=== PATIENT | female | born 1990 | race Caucasian/White ===

== ENCOUNTER → 2021-01-15 15:15 | Outpatient (CLI) | payer OTHER, SELFPAY ==
--- NOTE | ~2021-01-15 | US_ITS ---
EXAMINATION: US OB transvaginal DATE: 01/15/2021 15:45 INDICATION: First trimester dating TECHNIQUE: Real-time pelvic transabdominal and transvaginal ultrasound was performed. COMPARISON: None. FINDINGS: The uterus measures 10.2 x 5.8 x 8.7 cm. There is an intrauterine gestational sac. There i s a 1.1 x 1.4 x 0.3 cm hypoechoic area adjacent to the gestational sac. A yolk sac is identified. Fet al heart motion is identified measuring 182 beats per minute (bpm) by M-mode Doppler. The crown rump length measures 2.3 cm , which correlates with an estimated gestational age of 9 weeks and 0 da y(s) (+/-) 6 day(s). The right ovary measures 4.8 x 2.8 x 4.3 cm and contains a 3.8 x 1.8 x 3.6 cm complex cyst. The left ovary measures 2.6 x 1.7 x 2.2 cm. There is normal vascular flow in the ovaries. There is no free flu id in the pelvis. IMPRESSION: 1. Live intrauterine with an estimated gestational age of 9 weeks and 0 day(s) (+/-) 6 day( s) and an estimated delivery date of 08/20/2021. 2. Small subchorionic hematoma. 3. Complex cyst of the right ovary which can be reevaluated at the time of subchronic hematoma follow -up. Reviewed, dictated and finalized at location A. IMPRESSION: 1. Live intrauterine with an estimated gestational age of 9 weeks and 0 day(s) (+/-) 6 day(s) and an estimated delivery date of 08/20/2021. 2. Small subchorionic hematoma. 3. Complex cyst of the right ovary which can be reevaluated at the time of subc hronic hematoma follow-up.
== END ==
PROVIDERS: Visit Provider Nurse Practitioner
DX: O20.8 Other hemorrhage in early pregnancy (principal); Z3A.09 9 weeks gestation of pregnancy; N83.201 Unspecified ovarian cyst, right side
CPT/HCPCS: 76817

== ENCOUNTER → 2021-02-16 15:17 | Outpatient (CLI) | payer OTHER, SELFPAY ==
--- NOTE | ~2021-02-16 | US_ITS ---
US OB limited 02/16/2021 15:48 Indication: Follow-up subchorionic hematoma Procedure: High-resolution Limited obstetrical ultrasound Comparison: 01/15/2021 Findings: There is a single living intrauterine with heart rate of 161 bpm. Amniotic fluid is subjectively normal. There is a small subchorionic hemorrhage measuring 2.3 x 1.4 x 1.1 cm. Right ovary is unremarkable measuring 2.7 x 1.7 x 1.9 cm. Left ovary not visualized. No free fluid in the pelvis. Impression: 1: Single living intrauterine with heart rate of 161 bpm. 2: Small subchorionic hemorrhage. Reviewed, dictated and finalized at location B. Impression: 1: Single living intrauterine with heart rate of 161 bpm. 2: Small subchorionic hemorrhage.
== END ==
PROVIDERS: Visit Provider Obstetrics & Gynecology Gynecology
DX: O36.8910 Maternal care for other specified fetal problems, first trimester, not applicable or unspecified (principal)
CPT/HCPCS: 76815

== ENCOUNTER → 2021-03-03 15:16 | Outpatient (CLI) | payer OTHER, SELFPAY ==
--- NOTE | ~2021-03-03 | US_ITS ---
US OB limited 03/03/2021 15:58 Indication: Follow-up subchorionic hematoma. Procedure: High-resolution Limited obstetrical ultrasound Comparison: Ultrasound dated 02/16/2021 Findings: There is a single living intrauterine with heart rate of 168 BPM. Amniotic fluid is subjectively normal. Posterior placenta. There is an intraplacental sonolucency measuring 1. 8 x 1.5 x 1.2 cm, most likely benign placental barrow. No definite subchorionic hemorrhage. Impression: 1: Single living intrauterine with heart rate of 168 BPM. 2: Intraplacental sonolucency, most likely benign placental barrow. No marginal placental abnormalities are identified. Reviewed, dictated and finalized at location A. Impression: 1: Single living intrauterine with heart rate of 168 BPM. 2: Intraplacental sonolucency, most likely benign placental barrow. No marginal p lacental abnormalities are identified.
== END ==
PROVIDERS: Visit Provider Obstetrics & Gynecology Gynecology
DX: O36.93X0 Maternal care for fetal problem, unspecified, third trimester, not applicable or unspecified (principal); Z3A.00 Weeks of gestation of pregnancy not specified
CPT/HCPCS: 76815

== ENCOUNTER 2021-07-10 16:00 | Outpatient (CLI) | payer OTHER, SELFPAY ==
[2021-07-10 16:30] VITALS: BP 126/75; PULSE 88
[2021-07-10 16:31] VITALS: BP 117/75; PULSE 89
[2021-07-10 16:54] LABS: Basophils Percent Auto 0.2 % (0.2-1.2); Eosinophils Absolute Auto 0.1 K/mm3 (0-0.3); Eosinophils Percent Auto 0.5 % (0-4.4); Hematocrit 35.9 % (37.0-47.0); Hemoglobin 12.3 g/dL (12.0-15.0); Immature Granulocyte Absolute 0.11 K/mm3 (0.00-0.031); Immature Granulocyte Percent A 0.9 % (0-0.5); Lymphocytes Absolute Auto 1.49 K/mm3 (0.9-3.2); Lymphocytes Percent Auto 12.6 % (18.3-44.2); Mean Corpuscular HGB Conc 34.3 g/dl (32-36); Mean Corpuscular Hemoglobin 30.1 pg (26-34); Mean Platelet Volume 11.4 fl (7.4-10.4); Monocytes Absolute Auto 0.8 K/mm3 (0.1-0.6); Monocytes Percent Auto 6.9 % (2.6-8.5); Neutrophils Absolute Auto 9.4 K/mm3 (1.3-6.7); Neutrophils Percent Auto 78.9 % (45.5-73.1); Platelet Count Result 187 k/mm3 (150-375); Red Blood Count 4.08 M/mm3 (4.2-5.4); Red Cell Distribution Width 13.3 % (11.5-14.5); White Blood Count 11.9 K/mm3 (4.5-10.0)
[2021-07-10 17:00] VITALS: BP 111/67; PULSE 82
[2021-07-10 17:00] LABS: Add Urine Microscopic? YES; Appearance Urine Cloudy (Clear); Bacteria Urine Trace /hpf; Bilirubin Urine Negative (Negative); Blood Urine Negative (Negative); Color Urine Yellow (Yellow); Glucose Urine UA Negative (Negative); Ketones Urine Negative (Negative); Leukocyte Esterase Ur 3+ LEU/UL (NEGATIVE); Mucus Urine Rare /lpf; Nitrate Urine Negative (Negative); Protein Urine Negative (Negative); Specific Grav Ur 1.021 (1.001-1.035); Squamous Epithelial Cell Urine Many /hpf (Few); Urobilinogen Urine Negative mg/dL (<2.0); WBC Urine >75 /hpf (0-3)
[2021-07-10 17:04] VITALS: BP 126/75; PULSE 88
[2021-07-10 17:17] LABS: Alanine Aminotransferase 14 U/L (4-35); Albumin Level 3.5 g/dL (3.5-5.1); Alkaline Phosphatase 96 U/L (38-126); Anion Gap 3 mmol/L (8-16); Aspartate Amino Transferase 20 U/L (14-36); Bilirubin,Total 0.2 mg/dL (0.2-1.3); Blood Urea Nitrogen 7 mg/dL (7-17); Calcium 9.2 mg/dL (8.4-10.2); Carbon Dioxide 24 mmol/L (22-30); Chloride 106 mmol/L (98-107); Estimated Glomerular Filt Rate > 60; Glucose 94 mg/dL (65-110); Sodium 133 mmol/L (137-145); Uric Acid 3.3 mg/dL (2.5-7.5)
[2021-07-10 17:25] LABS: Potassium 3.9 mmol/L (3.4-5.0)
[2021-07-10 17:54] LABS: Creatinine Urine 134.6 mg/dL
[2021-07-10 18:18] LABS: Total Protein Urine Random < 5 mg/dL
[2021-07-10 18:19] LABS: Ur Ttl Prot Creatinine Ratio < 0.04 mg/mg (0-0.20)
== END 2021-07-10 18:25 | disposition home or self-care (01) ==
LOC: ANHOBOP 16:16 → ANHOBPP 16:17
PROVIDERS: Visit Provider Obstetrics & Gynecology Gynecology
DX: O16.3 Unspecified maternal hypertension, third trimester (principal); Z3A.34 34 weeks gestation of pregnancy
CPT/HCPCS: 36415; 59025; 80053; 81001; 82570; 84156; 84550; 85025; 87086; 99199

== ENCOUNTER 2021-07-11 18:25 | Outpatient (NON) | payer OTHER, SELFPAY ==
[2021-07-11 19:11] LABS: Collection Time Urine 24 HOURS
[2021-07-11 19:12] LABS: Patient Weight 179 Lbs; Total Volume 24 Hour Urine 1900 ml
[2021-07-11 20:09] LABS: Creatinine Clearance Urine 140.8 ml/min (75-125); Creatinine Urine 59.3 mg/dL; Total Protein Urine 24 Hr 152 mg/24hr (28-141); Total Protein Urine Random 8 mg/dL
== END 2021-07-11 18:26 | disposition home or self-care (01) ==
LOC: ANHOBOP 18:45
PROVIDERS: Visit Provider Obstetrics & Gynecology Gynecology
DX: O12.10 Gestational proteinuria, unspecified trimester (principal); Z3A.00 Weeks of gestation of pregnancy not specified
CPT/HCPCS: 81050; 82575; 84156

== ENCOUNTER 2021-08-13 05:04 | Inpatient (IN) | payer OTHER, SELFPAY ==
[2021-08-13] VITALS (126 sets, daily range): BP systolic 98–175; BP diastolic 47–139; PULSE 59–175; RESP 18–20; TEMP 36.5–37.5; O2SAT 98–100; BMI 29.3
--- NOTE | 2021-08-13 05:04 | LDADM ---
This patient, Joan Solis, was admitted to Labor/Delivery/Recovery 106 on 08/13/21 at 05:04. Plans for labor, pain management and were discussed with patient. Patient/family oriented to hospital policies and general routines including ID bracelet, bed and alarms, visiting hours, pain management, procedures, bathroom and other care routines, personal items, smoking policy, room service/diet and guest tray routines, security routines, and visiting hours. Patient/Family are encouraged to report perceived risks to care and to ask questions if they do not understand what they are told or what they should do. See OBIX for further documentation.
[2021-08-13 05:45] LABS: Basophils Percent Auto 0.3 % (0.2-1.2); Eosinophils Absolute Auto 0.1 K/mm3 (0-0.3); Eosinophils Percent Auto 0.5 % (0-4.4); Hematocrit 38.3 % (37.0-47.0); Hemoglobin 12.9 g/dL (12.0-15.0); Lymphocytes Absolute Auto 1.51 K/mm3 (0.9-3.2); Lymphocytes Percent Auto 15.2 % (18.3-44.2); Mean Corpuscular HGB Conc 33.7 g/dl (32-36); Mean Corpuscular Hemoglobin 29.7 pg (26-34); Mean Platelet Volume 11.9 fl (7.4-10.4); Monocytes Absolute Auto 0.6 K/mm3 (0.1-0.6); Monocytes Percent Auto 5.6 % (2.6-8.5); Neutrophils Absolute Auto 7.7 K/mm3 (1.3-6.7); Neutrophils Percent Auto 77.4 % (45.5-73.1); Platelet Count Result 166 k/mm3 (150-375); Red Blood Count 4.35 M/mm3 (4.2-5.4); Red Cell Distribution Width 13.8 % (11.5-14.5)
[2021-08-13] MEDS: OXYTOCIN 30 UNITS/NS 500 ML 30 UNITS/500 ML BAG 6 UNITS IV CONT (05:54)
[2021-08-13] MEDS: LACTATED RINGERS 1,000 ML 125 ML IV CONT ×4 (05:54→20:44)
--- NOTE | 2021-08-13 07:37 | WPDOBADMIT ---
Obstetrics - Admit Note Admission Note: record reviewed. No pertinent additions to the history and/or any subsequent changes in the physical findings that are not consistent with the expected course of the were found. Additions to the history and/or subsequent changes in the physical findings follow. None.Here for MIL 39 wks. Cervix 1-2/50/-2 anterior. AROM with clear fluid. FHTs reactive
--- NOTE | 2021-08-13 09:28 | P.PNAN_ITS ---
Anes - Eval Pre Procedure Procedure: labor epidural Date/Time: 08/13/21 09:28 Surgeon: khurram Preop Diagnosis: pain during labor Pre Op Diagnosis: Induction Patient Data Age: 31 Gender: F Height: 1.7 m Weight: 85 kg Last Vital Signs Temp 37.3 C 08/13/21 09:19 Pulse 83 08/13/21 09:15 Resp 18 08/13/21 07:20 BP 117/57 L 08/13/21 09:15 Allergies Allergy/AdvReac Type Severity Reaction Status Date / Time No Known Allergies Allergy Verified 07/21/21 14:28 Home Medications Medication Instructions Recorded Confirmed Type ergocalciferol (vitamin D2) 1,250 mcg PO [id number] 07/21/21 07/21/21 History [Vitamin D2] prenat.vits,aury,ayv-tccz-kxeef 1 tablet PO HS 07/21/21 07/21/21 History [ #2] Laboratory Tests 08/13/21 08/13/21 08/13/21 05:37 05:37 05:37 WBC 10.0 K/mm3 K/mm3 (4.5-10.0) RBC 4.35 M/mm3 M/mm3 (4.2-5.4) Hgb 12.9 g/dL g/dL (12.0-15.0) Hct 38.3 % % (37.0-47.0) MCV 88.0 fl fl (80-100) MCH 29.7 pg pg (26-34) MCHC 33.7 g/dl g/dl (32-36) RDW 13.8 % % (11.5-14.5) Plt Count 166 k/mm3 k/mm3 (150-375) MPV 11.9 fl H fl (7.4-10.4) Immature Gran % (Auto) 1.0 % H % (0-0.5) Neut % (Auto) 77.4 % H % (45.5-73.1) Lymph % (Auto) 15.2 % L % (18.3-44.2) [place] % (Auto) 5.6 % % (2.6-8.5) Eos % (Auto) 0.5 % % (0-4.4) Baso % (Auto) 0.3 % % (0.2-1.2) Lymph # (Auto) 1.51 K/mm3 K/mm3 (0.9-3.2) [place] # (Auto) 0.6 K/mm3 K/mm3 (0.1-0.6) Eos # (Auto) 0.1 K/mm3 K/mm3 (0-0.3) Baso # (Auto) 0.0 K/mm3 K/mm3 (0.0-0.1) Abs Immat Gran (auto) 0.10 K/mm3 H K/mm3 (0.00-0.031) Absolute Neuts (auto) 7.7 K/mm3 H K/mm3 (1.3-6.7) Absolute Nucleated RBC 0.0 K/mm3 K/mm3 (0.0-0.012) Nucleated RBC % 0.0 % % (0.0-0.2) RPR Pending Blood Type O Positive Antibody Screen Negative Patient hx anesthesia problems: none Family hx anesthesia problems: none Results Review: All pre-operative results and documents have been reviewed as part of the pre-operative evaluation. [facility] Past Medical History Medical History (Updated 08/13/21 @ 09:29 by Sue Downs CRNA) Intrauterine Family History Family History (Updated 07/21/21 @ 14:40 by Klarissa Diez RN) Father Diabetes type 2, controlled Prostate carcinoma Grandparent Alzheimer disease Prostate carcinoma Glaucoma Sibling Cleft lip and cleft palate Other Patient's father is Social History Social History Smoking status: Never smoker Substance use: never Spiritual care concerns: No Exam Day of Procedure 07/29
[2021-08-13 11:55] LABS: Rapid Plasma Reagin Non-Reactive (NonReactive)
[2021-08-14] VITALS (60 sets, daily range): BP systolic 96–205; BP diastolic 59–181; PULSE 64–199; RESP 16–18; TEMP 36.1–37.9; O2SAT 97–100
[2021-08-14] MEDS: LACTATED RINGERS 1,000 ML 125 ML IV CONT (00:26)
[2021-08-14] MEDS: ONDANSETRON INJ 4 MG/2 ML VIAL IV PUSH (01:48)
[2021-08-14] MEDS: AMPICILLIN 2 GM/NS 100 ML 2 GM/100 ML BAG IVPB (02:00)
--- NOTE | 2021-08-14 03:12 | PM.OBPRVD ---
OB - Delivery Note Procedure Delivery date: 08/14/21 Procedure: events: Labor Induction Intrapartal events: None Induction method: AROM and per pitocin protocol Delivery monitor: external FHT and internal uterine Route of delivery: Laceration Description: Perineal - 2nd Degree Delivery repair: vicryl (3-0) Specimen: Yes (placenta) Quantitative Blood Loss (ml): 200 Anesthesia type: Epidural Disposition: floor Baby Date of : 08/14/21 Weeks of gestation at delivery: 39 Infant gender: Male presentation: vertex position: Right Occiput Anterior Placenta delivery description: Spontaneous cord vessel description: 3 Vessels score one minute: 8 score five minutes: 9
--- NOTE | 2021-08-14 03:13 | PM.OBDSVD ---
DS: Admitting Diagnosis Discharge Date 08/16/21 Admitting Diagnosis IUP 39 wks for MIL DS: Discharge Diagnosis Discharge Diagnosis (1) (normal spontaneous vaginal delivery): Code(s): O80 - Encounter for full-term uncomplicated delivery Status: Acute OB - DS: Summary OB Procedures : Ultrasound OB Procedures Intrapartum: Spontaneous Vag Delivery OB Procedures: : None Peripartum Data Delivery Method: Natural Vaginal Laceration Description: Perineal - 2nd Degree complications: none Status at Discharge Functional status at discharge: independent ambulation Overall status at discharge: patient is progressing back to baseline Time Spent with Patient Time attestation: Total time spent providing and/or coordinating discharge services: DS: Data Data Completed and Pending Labs on day of discharge: Labs from last 24 hours 08/13/21 08/13/21 08/13/21 05:37 05:37 05:37 WBC 10.0 RBC 4.35 Hgb 12.9 Hct 38.3 MCV 88.0 MCH 29.7 MCHC 33.7 RDW 13.8 Plt Count 166 MPV 11.9 H Immature Gran % (Auto) 1.0 H Neut % (Auto) 77.4 H Lymph % (Auto) 15.2 L [place] % (Auto) 5.6 Eos % (Auto) 0.5 Baso % (Auto) 0.3 Lymph # (Auto) 1.51 [place] # (Auto) 0.6 Eos # (Auto) 0.1 Baso # (Auto) 0.0 Abs Immat Gran (auto) 0.10 H Absolute Neuts (auto) 7.7 H Absolute Nucleated RBC 0.0 Nucleated RBC % 0.0 RPR Non-reactive Blood Type O Positive Antibody Screen Negative Discharge Plan Discharge Attending physician on discharge: Melissa Bowie Discharging Clinician: Melvin Lucas Anticipated Discharge Date/Time: 08/16/21 03:14 Patient Disposition: Home, Self-Care Activity: may shower and pelvic rest Diet: regular Discharge Instructions: Education: Mom and Baby Guide Given to: Mother Follow-Up: Call your delivering provider's office for an appointment to be seen in: 4 Weeks Mom and baby should come to the [facility] for the follow-up appointment. Appointment Date/Time: August 17, 2021 at 9:00 am What to expect at your follow-up visit: Physical Assessment Call [phone] if you are unable to keep your appointment time. BREAST CARE: * Wear a snug supportive bra. * For engorgement discomfort: Breast Feeding: * Apply warm moist washcloths * Express milk as needed to relieve engorgement * Wear loose clothing * For sore nipples: * Identify correct latch-on * Apply warm moist washcloths before and after nursing * Air dry nipples after nursing * May apply Lansinoh cream to nipples EPISIOTOMY/PERINEAL CARE: * Until bleeding stops, use your yamileth bottle after urinating * Change your pad frequently throughout the day * You may take sitz baths several times a day (fill your bathtub with warm water and soak for 20 minutes.) Do NOT bathe in the water * No tub baths until seen by your physician - You may shower ACTIVITY: * Rest as much as possible. * Do not exercise or lift anything heavier than your baby (such as laundry or other children.) * Avoid stairs or driving as much as possible. * Do not put anything into the vagina. No douching, tampons, or sexual activity until seen by physician. NOTIFY PHYSICIAN IF YOU HAVE ANY QUESTIONS OR IF ANY OF THE FOLLOWING SYMPTOMS OCCUR: * If your episiotomy or incision becomes red, swollen, or more painful than what you have experienced in the hospital. * If your vaginal bleeding becomes foul smelling. * If your vaginal bleeding becomes more heavy than a period or if your bleeding changes from pink to bright red. However, you may pass an occasional walnut-sized clot once or twice for the first week . * If you experience a sharp, shooting pain in you calves. * If you discover a hard, reddened area on your breast or if you experience flu-like sy
[2021-08-14] MEDS: OXYTOCIN 30 UNITS/NS 500 ML 30 UNITS/500 ML BAG 999 UNITS IV CONT (03:18)
[2021-08-14] MEDS: ACETAMINOPHEN 325 MG TABLET 650 MG PO ×2 (05:05→17:24)
[2021-08-14] MEDS: BENZOCAINE 20% AER SPR (*SP) 56 GM CAN 1 SPRAY TOPICAL (05:28)
[2021-08-14] MEDS: WITCH HAZEL 40 PADS 1 PAD TOPICAL (05:28)
--- NOTE | 2021-08-14 05:44 | PC.NURSE ---
Patient transferred to post room #284 via w/c. Support person present. Oriented to unit, room, information board, rooming in, admission packet and security measures. Patient verbalizes understanding.
[2021-08-14] MEDS: MULTIVIT/MIN/PREN/FOL AC/IRON TABLET 1 TAB PO (08:09)
[2021-08-14] MEDS: IBUPROFEN 600 MG TABLET PO ×2 (08:09→14:35)
[2021-08-14] MEDS: DOCUSATE SODIUM 100 MG CAPSULE PO ×2 (08:09→17:24)
[2021-08-14] MEDS: LANOLIN (LANSINOH) 7.5 GM CREAM 1 APPLIC TOPICAL (14:36)
--- NOTE | 2021-08-14 15:21 | PC.NURSE ---
breast feeding note; nurse has worked with mom and baby today at feedings; baby sleepy and making no effort to latch to feed; attempts made, including attempts with nipple shield. Now feeding plan implemented, attempt breast, pump and bottle feed at each feeding; see feeding notes. Parents have been attentive to all instruction and voice understanding of information shared, including feeding plan. They have their Mother Baby Guide, and breast feeding pages flagged for her home reference, Including LC contact information. nurse encouraged mother to read the breast feeding section prior to discharge home, and ask any needed questions. She agreed.
[2021-08-15] MEDS: IBUPROFEN 600 MG TABLET PO ×2 (03:32→19:44)
[2021-08-15 05:13] LABS: Hematocrit 29.9 % (37.0-47.0); Hemoglobin 9.9 g/dL (12.0-15.0)
[2021-08-15 07:30] VITALS: BP 109/71; PULSE 69; RESP 18; TEMP 36.6; O2SAT 98
--- NOTE | 2021-08-15 08:54 | PM.OBPNVD ---
OB - PN: Subj Subjective Date/time seen: 08/15/21 08:54 Doing well troubles with nursing OB - PN: Obj Data Labs CBC & Chem 7: 08/15/21 03:25 Labs: Laboratory Results - last 24 hr 08/15/21 03:25 Hgb 9.9 L D Hct 29.9 L OB - PN A/P Assessment and Plan (1) (normal spontaneous vaginal delivery): Code(s): O80 - Encounter for full-term uncomplicated delivery Status: Acute Assessment and Plan: continue with pp care Time Spent With Patient Time: Total time spent is greater than 50% in coordination of care (as documented) at patient's floor/unit and/or counseling patient: Exam Narrative: ff below umbilicus HENMT: General nose exam: no foreign body in nares
[2021-08-15] MEDS: DOCUSATE SODIUM 100 MG CAPSULE PO ×2 (09:19→17:24)
[2021-08-15] MEDS: POLYSACCHARIDE IRON COMPLEX 150 MG CAPSULE PO ×2 (09:19→17:24)
[2021-08-15] MEDS: MULTIVIT/MIN/PREN/FOL AC/IRON TABLET 1 TAB PO (09:19)
--- NOTE | 2021-08-15 09:38 | WPDANLDPN2 ---
Anes-Prog Note L&D Date/Time: 08/15/21 09:38 Comfortable throughout: labor and delivery Neuraxial method: epidural Epidural/Spinal procedure site: clean & non-tender Neuro status: Neuro function grossly intact. Cardiovascular status: normal Respiratory status: normal Airway patency: baseline Mental status: baseline Post-Op hydration status: normal Vital Signs: Last Vital Signs Temp 97.8 F 08/15/21 07:30 Pulse 69 08/15/21 07:30 Resp 18 08/15/21 07:30 BP 109/71 08/15/21 07:30 Pulse Ox 98 08/15/21 07:30 Pain score (VAS): 0 Post-procedural complaints: none Patient feedback: Patient satisfied with anesthetic care.
[2021-08-15 19:30] VITALS: BP 118/77; PULSE 78; RESP 18; TEMP 36.8; O2SAT 99
--- NOTE | 2021-08-15 20:50 | PC.NURSE ---
08/15/2021 at 2030 Patient viewed the discharge video Mother & Baby Care, The First Two Weeks . Patient was given the opportunity and encouraged to ask questions. Patient verbalized understanding of information shared and has been given the mother/baby guide for home reference.
[2021-08-16] MEDS: DOCUSATE SODIUM 100 MG CAPSULE PO (08:01)
[2021-08-16] MEDS: IBUPROFEN 600 MG TABLET PO (08:01)
[2021-08-16] MEDS: POLYSACCHARIDE IRON COMPLEX 150 MG CAPSULE PO (08:01)
[2021-08-16] MEDS: MULTIVIT/MIN/PREN/FOL AC/IRON TABLET 1 TAB PO (08:02)
[2021-08-16 08:15] VITALS: BP 128/82; PULSE 80; RESP 18; TEMP 36.7; O2SAT 98
--- NOTE | 2021-08-16 13:07 | PM.OBPNVD ---
OB - PN: Subj Subjective Date/time seen: 08/16/21 13:08 doing well no complaints OB - PN: Obj Data Labs CBC & Chem 7: 08/15/21 03:25 OB - PN A/P Assessment and Plan (1) (normal spontaneous vaginal delivery): Code(s): O80 - Encounter for full-term uncomplicated delivery Status: Acute Assessment and Plan: s/c home Time Spent With Patient Time: Total time spent is greater than 50% in coordination of care (as documented) at patient's floor/unit and/or counseling patient: Exam Narrative: ff fundus
[2021-08-17 09:36] VITALS: BP 121/72; PULSE 75; RESP 20; TEMP 36.8; O2SAT 100
== END 2021-08-16 14:20 | disposition home or self-care (01) | DRG 807 ==
LOC: ANHLDR 08-18 08:25 → ANHOB2 08-18 08:25
PROVIDERS: Admitting Provider Obstetrics & Gynecology Gynecology; Visit Provider Obstetrics & Gynecology
DX: O42.92 Full-term premature rupture of membranes, unspecified as to length of time between rupture and onset of labor (principal); Z37.0 Single live birth; O70.1 Second degree perineal laceration during delivery; O76 Abnormality in fetal heart rate and rhythm complicating labor and delivery; Z3A.39 39 weeks gestation of pregnancy
CPT/HCPCS: 36415; 85014; 85018; 85025; 86592; 86850; 86900; 86901; 88307; A9270; J0290; J2405; J2590; J2795; J7120

== ENCOUNTER → 2023-05-09 15:45 | Outpatient (CLI) | payer OTHER, SELFPAY ==
--- NOTE | ~2023-05-09 | US_ITS ---
EXAMINATION: US OB transvaginal DATE: 05/09/2023 16:12 INDICATION: Confirmation of viability TECHNIQUE: Real-time transabdominal and transvaginal obstetric ultrasound. FINDINGS: No prior studies for comparison. The uterus measures 8.4 x 6.7 x 9 cm. There is an intrauterine gestational sac, with pole ident ified. The crown rump length measures 2.67, which correlates with a estimated gestational age of 9 w eeks 3 days. heart tones are identified measuring 176. Right ovary is within normal limits me asuring 3.6 x 2.6 x 2.2 cm. Left ovary not visualized. No free fluid in the pelvis. IMPRESSION: 1. SL IUP with an EGA of 9 weeks, 3 days (EDC by current ultrasound of 12/09/2023). Reviewed, dictated and finalized at location L. IMPRESSION: 1. SL IUP with an EGA of 9 weeks, 3 days (EDC by current ultrasound of ).
== END ==
PROVIDERS: PCP Advanced Practice Midwife; Visit Provider Advanced Practice Midwife
DX: O36.80X0 Pregnancy with inconclusive fetal viability, not applicable or unspecified (principal); Z3A.09 9 weeks gestation of pregnancy
CPT/HCPCS: 76817

== ENCOUNTER 2023-11-30 16:19 | Outpatient (CLI) | payer OTHER, SELFPAY ==
[2023-11-30 17:03] VITALS: BP 143/81; PULSE 93
[2023-11-30 17:15] VITALS: BP 125/78; PULSE 88; PULSE 93; BMI 29.7
[2023-11-30 17:17] LABS: Basophils Percent Auto 0.2 % (0.2-1.2); Eosinophils Absolute Auto 0.1 K/mm3 (0-0.3); Eosinophils Percent Auto 0.5 % (0-4.4); Hematocrit 37.4 % (37.0-47.0); Hemoglobin 12.5 g/dL (12.0-15.0); Immature Granulocyte Absolute 0.14 K/mm3 (0.00-0.031); Immature Granulocyte Percent A 1.4 % (0-0.5); Lymphocytes Absolute Auto 1.05 K/mm3 (0.9-3.2); Lymphocytes Percent Auto 10.1 % (18.3-44.2); Mean Corpuscular HGB Conc 33.4 g/dl (32-36); Mean Corpuscular Hemoglobin 29.1 pg (26-34); Mean Corpuscular Volume 87.2 fl (80-100); Mean Platelet Volume 12.2 fl (7.4-10.4); Monocytes Absolute Auto 0.6 K/mm3 (0.1-0.6); Monocytes Percent Auto 6.2 % (2.6-8.5); Neutrophils Absolute Auto 8.5 K/mm3 (1.3-6.7); Neutrophils Percent Auto 81.6 % (45.5-73.1); Platelet Count Result 163 k/mm3 (150-375); Red Blood Count 4.29 M/mm3 (4.2-5.4); Red Cell Distribution Width 13.7 % (11.5-14.5); White Blood Count 10.4 K/mm3 (4.5-10.0)
[2023-11-30 17:22] LABS: Appearance Urine Cloudy (Clear); Bacteria Urine 1+ /hpf; Bilirubin Urine Negative (Negative); Blood Urine Negative (Negative); Color Urine Yellow (Yellow); Glucose Urine UA Trace mg/dL (Negative); Ketones Urine Negative (Negative); Leukocyte Esterase Ur 2+ LEU/UL (Negative); Nitrate Urine Negative (Negative); Non Pathogenic Casts 0-2; Protein Urine Negative (Negative); RBC Urine 0-2 /hpf (0-2); Specific Grav Ur 1.016 (1.001-1.035); Squamous Epithelial Cell Urine Few /hpf (Few); Urobilinogen Urine 0.2 mg/dL (<2.0); WBC Urine 21-50 /hpf (0-3); pH Urine 6.5 (5.0-9.0)
[2023-11-30 17:24] LABS: Add Urine Microscopic? YES
[2023-11-30 17:30] VITALS: BP 128/79; PULSE 92
[2023-11-30 17:33] LABS: Alanine Aminotransferase 9 U/L (6-35); Albumin Level 3.4 g/dL (3.5-5.1); Alkaline Phosphatase 165 U/L (38-126); Anion Gap 5 mmol/L (4-12); Aspartate Amino Transferase 17 U/L (14-36); Bilirubin,Total 0.3 mg/dL (0.2-1.3); Blood Urea Nitrogen 7 mg/dL (7-17); Calcium 8.6 mg/dL (8.4-10.2); Carbon Dioxide 22 mmol/L (22-30); Chloride 104 mmol/L (98-107); Estimated Glomerular Filt Rate > 60; Glucose 129 mg/dL (65-110); Potassium 3.8 mmol/L (3.4-5.0); Sodium 131 mmol/L (137-145); Uric Acid 3.7 mg/dL (2.5-7.5)
[2023-11-30 17:41] VITALS: BP 128/79; PULSE 88
[2023-11-30 17:43] VITALS: BP 131/78; PULSE 86
[2023-11-30 18:03] LABS: Creatinine Urine 65.2 mg/dL; Total Protein Urine Random 8 mg/dL; Ur Ttl Prot Creatinine Ratio 0.12 mg/mg (0-0.20)
--- NOTE | 2023-11-30 18:19 | PC.NURSE ---
Amber Phillips CNM informed of reactive NST, BP's, and lab results. Order for discharge and for home monitoring of BP obtained.
== END 2023-11-30 18:32 | disposition home or self-care (01) ==
LOC: ANHOBOP 16:21 → ANHOBPP 16:22
PROVIDERS: PCP Advanced Practice Midwife; Visit Provider Advanced Practice Midwife
DX: O13.9 Gestational [pregnancy-induced] hypertension without significant proteinuria, unspecified trimester (principal); Z3A.00 Weeks of gestation of pregnancy not specified
CPT/HCPCS: 36415; 59025; 80053; 81001; 82570; 84156; 84550; 85025; 87086; 99199

== ENCOUNTER 2023-12-02 16:16 | Outpatient (NON) | payer OTHER, SELFPAY ==
[2023-12-02 16:26] VITALS: BMI 29.7
[2023-12-02 17:51] LABS: Collection Time Urine 24 HOURS
[2023-12-02 18:04] LABS: Creatinine Urine 76.1 mg/dL; Patient Weight 184 Lbs; Total Protein Urine Random 12 mg/dL
[2023-12-02 18:18] LABS: Creatinine Clearance Urine 190.1 ml/min (75-125); Total Protein Urine 24 Hr 192 mg/24hr (28-141); Total Volume 24 Hour Urine 1600 ml
== END 2023-12-02 16:17 | disposition home or self-care (01) ==
LOC: ANHOBOP 16:21
PROVIDERS: PCP Advanced Practice Midwife; Visit Provider Obstetrics & Gynecology Gynecology
DX: Z34.90 Encounter for supervision of normal pregnancy, unspecified, unspecified trimester (principal); Z3A.00 Weeks of gestation of pregnancy not specified
CPT/HCPCS: 81050; 82575; 84156

== ENCOUNTER 2023-12-08 04:59 | Inpatient (IN) | payer OTHER, SELFPAY ==
[2023-12-08] VITALS (95 sets, daily range): BP systolic 116–157; BP diastolic 67–95; PULSE 64–131; RESP 15–18; TEMP 36.4–36.7; O2SAT 86–100; BMI 29.9
--- NOTE | 2023-12-08 05:28 | LDADM ---
This patient, Joan Solis, was admitted to Labor/Delivery/Recovery 105 on 12/08/23 at 04:59. Plans for labor, pain management and were discussed with patient. Patient/family oriented to hospital policies and general routines including ID bracelet, bed and alarms, visiting hours, pain management, procedures, bathroom and other care routines, personal items, smoking policy, room service/diet and guest tray routines, security routines, and visiting hours. Patient/Family are encouraged to report perceived risks to care and to ask questions if they do not understand what they are told or what they should do. See OBIX for further documentation.
[2023-12-08] MEDS: LACTATED RINGERS 1,000 ML 125 ML IV CONT ×2 (05:43→11:38)
[2023-12-08] MEDS: OXYTOCIN 30 UNITS/NS 500 ML 30 UNITS/500 ML BAG IV CONT (05:43)
[2023-12-08 05:48] LABS: Basophils Percent Auto 0.3 % (0.2-1.2); Eosinophils Absolute Auto 0.1 K/mm3 (0-0.3); Eosinophils Percent Auto 0.7 % (0-4.4); Hematocrit 36.9 % (37.0-47.0); Hemoglobin 12.2 g/dL (12.0-15.0); Immature Granulocyte Absolute 0.12 K/mm3 (0.00-0.031); Immature Granulocyte Percent A 1.2 % (0-0.5); Lymphocytes Absolute Auto 1.31 K/mm3 (0.9-3.2); Lymphocytes Percent Auto 13.5 % (18.3-44.2); Mean Corpuscular HGB Conc 33.1 g/dl (32-36); Mean Corpuscular Hemoglobin 28.9 pg (26-34); Mean Corpuscular Volume 87.4 fl (80-100); Mean Platelet Volume 12.3 fl (7.4-10.4); Monocytes Absolute Auto 0.5 K/mm3 (0.1-0.6); Monocytes Percent Auto 5.2 % (2.6-8.5); Neutrophils Absolute Auto 7.7 K/mm3 (1.3-6.7); Neutrophils Percent Auto 79.1 % (45.5-73.1); Platelet Count Result 181 k/mm3 (150-375); Red Blood Count 4.22 M/mm3 (4.2-5.4); Red Cell Distribution Width 13.4 % (11.5-14.5); White Blood Count 9.7 K/mm3 (4.5-10.0)
--- NOTE | 2023-12-08 06:29 | WPDANESEPP ---
Anes - Eval Pre Procedure Procedure: labor epidural Date/Time: 12/08/23 06:29 Surgeon: khurram Preop Diagnosis: pain during labor Pre Op Diagnosis: IOL Patient Data Age: 33 Gender: F Height: 1.68 m Weight: 84 kg Last Vital Signs Pulse 90 12/08/23 06:02 BP 140/90 12/08/23 06:02 O2 Del Method Room Air 12/08/23 05:28 Allergies Allergy/AdvReac Type Severity Reaction Status Date / Time No Known Allergies Allergy Verified 12/08/23 05:34 Home Medications Medication Instructions Recorded Confirmed Type prenat.vits,aury,nzl-izqo-gocsd 1 tablet PO HS 07/21/21 12/08/23 History cholecalciferol (vitamin D3) 50 4,000 unit PO DAILY 11/30/23 12/08/23 History mcg (2,000 unit) tablet (Vitamin D3) Laboratory Tests 12/08/23 05:40 WBC 9.7 K/mm3 (4.5-10.0) RBC 4.22 M/mm3 (4.2-5.4) Hgb 12.2 g/dL (12.0-15.0) Hct 36.9 L % (37.0-47.0) MCV 87.4 fl (80-100) MCH 28.9 pg (26-34) MCHC 33.1 g/dl (32-36) RDW 13.4 % (11.5-14.5) Plt Count 181 k/mm3 (150-375) MPV 12.3 H fl (7.4-10.4) Immature Gran % (Auto) 1.2 H % (0-0.5) Neut % (Auto) 79.1 H % (45.5-73.1) Lymph % (Auto) 13.5 L % (18.3-44.2) [place] % (Auto) 5.2 % (2.6-8.5) Eos % (Auto) 0.7 % (0-4.4) Baso % (Auto) 0.3 % (0.2-1.2) Lymph # (Auto) 1.31 K/mm3 (0.9-3.2) [place] # (Auto) 0.5 K/mm3 (0.1-0.6) Eos # (Auto) 0.1 K/mm3 (0-0.3) Baso # (Auto) 0.0 K/mm3 (0.0-0.1) Abs Immat Gran (auto) 0.12 H K/mm3 (0.00-0.031) Absolute Neuts (auto) 7.7 H K/mm3 (1.3-6.7) Absolute Nucleated RBC 0.000 K/mm3 (0.0-0.012) Nucleated RBC % 0.0 % (0.0-0.2) RPR Pending Patient hx anesthesia problems: none Family hx anesthesia problems: none Results Review: All pre-operative results and documents have been reviewed as part of the pre-operative evaluation. [facility] Past Medical History Medical History (Updated 08/14/21 @ 03:13 by Melissa Bowie MD) Intrauterine Family History Family History Father Diabetes type 2, controlled Prostate carcinoma Grandparent Alzheimer disease Prostate carcinoma Glaucoma Sibling Cleft lip and cleft palate Other Patient's father is Social History Social History Smoking status: Never smoker Substance use: never Do You Feel Safe in your Home?: Yes Lack of Transportation: No Lack of Food: Never True Current Housing: I Have Housing Concerned About Future Housing: No Difficulty Paying Gas/Electric Bills: No Difficulty Paying for Meds: No Currently Unemployed: No Education: Bachelor's Degree Difficulty w/ Childcare or Family Care: No Spiritual care concerns: No Exam Day of Procedure 12/08/23 06:29
[2023-12-08 09:01] LABS: Rapid Plasma Reagin Non-Reactive (NonReactive)
--- NOTE | 2023-12-08 09:45 | WPDOBADMIT ---
Obstetrics - Admit Note Admission Note: record reviewed. No pertinent additions to the history and/or any subsequent changes in the physical findings that are not consistent with the expected course of the were found. Additions to the history and/or subsequent changes in the physical findings follow. Here for MIL @ 40 wks. Cervix 3-4/50/-2 AROM with clear fluid. FHTs cat. I. Continue Pitocin.
--- NOTE | 2023-12-08 14:49 | PM.OBPRVD ---
OB - Vaginal Delivery Note Procedure Delivery date: 12/08/23 Induction method: AROM and Per Pitocin Protocol Delivery monitor: External FHT and External Uterine Route of delivery: Laceration Description: Perineal - 1st Degree Delivery repair: vicryl (3-0) Specimen: No Quantitative Blood Loss (ml): 150 Anesthesia type: Epidural Disposition: Floor Complications: No immediate complications Baby Date of : 12/08/23 Weeks of gestation at delivery: 40 gender: Male presentation: vertex position: Right Occiput Anterior Placenta delivery description: Spontaneous Cord Vessel Description: 3 Vessels score one minute: 8 score five minutes: 9
--- NOTE | 2023-12-08 14:51 | PM.OBDSVD ---
DS: Admitting Diagnosis Admitting Diagnosis IUP 40 wks for MIL DS: Discharge Diagnosis Discharge Diagnosis (1) (normal spontaneous vaginal delivery): Code(s): O80 - Encounter for full-term uncomplicated delivery Status: Acute OB - DS: Summary OB Procedures : Ultrasound OB Procedures Intrapartum: Spontaneous Vag Delivery OB Procedures: : None Peripartum Data Delivery Method: Natural Vaginal Laceration Description: Perineal - 1st Degree complications: none Status at Discharge Functional status at discharge: independent ambulation Overall status at discharge: patient is progressing back to baseline Time Spent with Patient Time attestation: Total time spent providing and/or coordinating discharge services: DS: Data Data Completed and Pending Labs on day of discharge: Labs from last 24 hours 12/08/23 05:40 WBC 9.7 RBC 4.22 Hgb 12.2 Hct 36.9 L MCV 87.4 MCH 28.9 MCHC 33.1 RDW 13.4 Plt Count 181 MPV 12.3 H Immature Gran % (Auto) 1.2 H Neut % (Auto) 79.1 H Lymph % (Auto) 13.5 L [place] % (Auto) 5.2 Eos % (Auto) 0.7 Baso % (Auto) 0.3 Lymph # (Auto) 1.31 [place] # (Auto) 0.5 Eos # (Auto) 0.1 Baso # (Auto) 0.0 Abs Immat Gran (auto) 0.12 H Absolute Neuts (auto) 7.7 H Absolute Nucleated RBC 0.000 Nucleated RBC % 0.0 RPR Non-reactive Blood Type O Positive Antibody Screen Negative Discharge Plan Discharge Attending physician on discharge: Melissa Bowie Anticipated Discharge Date/Time: 12/09/23 14:51 Patient Disposition: Home, Self-Care Activity: may shower and pelvic rest Diet: regular Patient Instructions: Antibiotic Form Stand Alone Forms: General Discharge Information Follow-up/Referrals: Melissa Bowie MD [Physician] - 6 Weeks Discharge Medications: No Action cholecalciferol (vitamin D3) [Vitamin D3] 50 mcg (2,000 unit) Tablet 4,000 unit PO DAILY prenat.vits,aury,fex-kwhy-pewam Tablet 1 tablet PO HS Date of admission: 12/08/23 04:59 Primary Care Provider: Alan,Vilma B. Admitting Provider: Melissa Bowie Attending physician on admission: Melissa Bowie Condition: Stable
[2023-12-08] MEDS: OXYTOCIN 30 UNITS/NS 500 ML 30 UNITS/500 ML BAG 125 UNITS IV CONT (15:12)
[2023-12-08] MEDS: WITCH HAZEL 40 PADS 1 PAD TOPICAL (17:36)
[2023-12-08] MEDS: ACETAMINOPHEN 325 MG TABLET 650 MG PO (17:37)
[2023-12-08] MEDS: IBUPROFEN 600 MG TABLET PO (22:26)
[2023-12-09] MEDS: ACETAMINOPHEN 325 MG TABLET 650 MG PO ×2 (04:20→11:27)
[2023-12-09] MEDS: IBUPROFEN 600 MG TABLET PO ×2 (04:20→11:27)
[2023-12-09 05:48] LABS: Hematocrit 33.5 % (37.0-47.0); Hemoglobin 11.1 g/dL (12.0-15.0)
[2023-12-09] MEDS: CHOLECALCIFEROL 1,000 UNITS TABLET 4000 UNITS PO (07:53)
[2023-12-09] MEDS: DOCUSATE SODIUM 100 MG CAPSULE PO (07:54)
--- NOTE | 2023-12-09 08:00 | WPDANLDPN2 ---
Anes-Prog Note L&D Date/Time: 12/09/23 08:00 Comfortable throughout: labor and delivery Neuraxial method: epidural Epidural/Spinal procedure site: clean & non-tender Neuro status: Neuro function grossly intact. Cardiovascular status: normal Respiratory status: normal Airway patency: baseline Mental status: baseline Post-Op hydration status: normal Vital Signs: Last Vital Signs Temp 36.6 C 12/08/23 22:26 Pulse 75 12/08/23 22:26 Resp 18 12/08/23 22:26 BP 129/79 12/08/23 22:26 Pulse Ox 100 12/08/23 22:26 O2 Del Method Room Air 12/08/23 05:28 Pain score (VAS): 2 Post-procedural complaints: none Patient feedback: Patient satisfied with anesthetic care.
[2023-12-09 08:08] VITALS: BP 142/90; PULSE 74; RESP 20; TEMP 36.8; O2SAT 98
--- NOTE | 2023-12-09 08:59 | PM.OBPNVD ---
OB - PN: Subj Subjective Date/time seen: 12/09/23 08:59 Patient comments: no complaints and pain well controlled baby status: doing well OB - PN: Obj Data Labs 12/09/23 04:31 Labs: Laboratory Results - last 24 hr 12/08/23 12/09/23 05:40 04:31 Hgb 11.1 L Hct 33.5 L RPR Non-reactive OB - PN A/P Plan day: 1 Plan: routine care, discharge home, follow up 6 weeks and other (plans condoms until vasectomy) Time Spent With Patient Time: Total time spent is greater than 50% in coordination of care (as documented) at patient's floor/unit and/or counseling patient: Exam : Bimanual exam- vagina & uterus: other (Uterus firm, nt @U)
--- NOTE | 2023-12-09 09:02 | PM.OBPNVD ---
OB - PN: Subj Subjective Date/time seen: 12/09/23 09:02 Interval history: ADDENDUM: correction. Plans micronor for control OB - PN: Obj Data Labs 12/09/23 04:31 Labs: Laboratory Results - last 24 hr 12/09/23 04:31 Hgb 11.1 L Hct 33.5 L OB - PN A/P Time Spent With Patient Time: Total time spent is greater than 50% in coordination of care (as documented) at patient's floor/unit and/or counseling patient:
--- NOTE | 2023-12-09 09:03 | PM.OBDSVD ---
DS: Admitting Diagnosis Discharge Date 12/09/23 Admitting Diagnosis IUP 40 wks MIL DS: Discharge Diagnosis Discharge Diagnosis (1) (normal spontaneous vaginal delivery): Code(s): O80 - Encounter for full-term uncomplicated delivery Status: Acute OB - DS: Summary OB Procedures : Ultrasound OB Procedures Intrapartum: Spontaneous Vag Delivery OB Procedures: : None Peripartum Data Infant Delivery Method: Natural Vaginal Laceration Description: Perineal - 1st Degree complications: none Status at Discharge Functional status at discharge: independent ambulation Overall status at discharge: patient is progressing back to baseline Time Spent with Patient Time attestation: Total time spent providing and/or coordinating discharge services: DS: Data Data Completed and Pending Labs on day of discharge: Labs from last 24 hours 12/09/23 04:31 Hgb 11.1 L Hct 33.5 L Discharge Plan Discharge Attending physician on discharge: Melissa Bowie Discharging Clinician: Melissa Bowie Anticipated Discharge Date/Time: 12/09/23 14:51 Patient Disposition: Home, Self-Care Activity: may shower and pelvic rest Diet: regular Patient Instructions: Antibiotic Form Stand Alone Forms: General Discharge Information Follow-up/Referrals: Melissa Bowie MD [Physician] - 6 Weeks Discharge Medications: New norethindrone (contraceptive) 0.35 mg tablet 0.35 mg PO DAILY Qty: 84 3RF Continued cholecalciferol (vitamin D3) [Vitamin D3] 50 mcg (2,000 unit) Tablet 4,000 unit PO DAILY prenat.vits,aury,maf-[id number] Tablet 1 tablet PO HS Date of admission: 12/08/23 04:59 Primary Care Provider: Vilma Phillips Admitting Provider: Melissa Bowie Attending physician on admission: Melissa Bowie Condition: Stable
[2023-12-09 12:09] VITALS: BP 119/76; PULSE 80; RESP 18; TEMP 36.8; O2SAT 99
--- NOTE | 2023-12-09 15:10 | PC.NURSE ---
[id number] Introductions were made and Mother verbalizes she is able to independently latch infant with appropriate positioning and alignment. She denies any nipple discomfort and is responsively . Infant is currently meeting outcomes for weight, output, jaundice, blood sugar and feeding frequencies of 8-12 times in 24 hours. Mother declines any additional assistance or education at this time. Mother is encouraged to call for assistance if her doesn?t latch, pain with latching, questions or concerns. Mother voiced understanding of information shared along with the mom/baby guide for an additional resource.
[2023-12-10 10:26] VITALS: BP 113/74; PULSE 82; RESP 18; TEMP 36.4; O2SAT 99
== END 2023-12-09 16:00 | disposition home or self-care (01) | DRG 807 ==
LOC: ANHLDR 14:52 → ANHOB2 17:59
PROVIDERS: Admitting Provider Obstetrics & Gynecology Gynecology; PCP Advanced Practice Midwife; Visit Provider Obstetrics & Gynecology Gynecology
DX: O70.0 First degree perineal laceration during delivery (principal); Z37.0 Single live birth; Z3A.40 40 weeks gestation of pregnancy
CPT/HCPCS: 36415; 85014; 85018; 85025; 86592; 86850; 86900; 86901; A9270; J2590; J2795; J7120